=== PATIENT | female | born 1970 | race Caucasian/White ===

== ENCOUNTER 2024-11-07 09:53 | Outpatient (OUT) | payer OTHER, SELFPAY ==
--- OUTSIDE RECORDS SUMMARY | 2023-10-25 07:35 | XMS_ITS ---
Author Organization The [facility] in [place] Address [address] [place] [address] Care Team Providers Care Wastewater Process Engineer Name Role Phone Ernst Shekhar Primary Care Provider ELIEL GAMBOA Unavailable [phone] REASON FOR VISIT BP Check Medications Medication SIG (Take, Route, Frequency, Duration) Notes Start Date End Date Status Coreg 6.25 MG 1 tablet with food O rally Twice a day for 30 days 10/25/2023 Active Vital Signs Height 64 in 10/25/2023 Blood pressure systolic 142 mm Hg 10/25/19 24 Blood pressure diastolic 92 mm Hg 024 Encounters Encounter Location Date Provider Diagnosis [facility] [address] [place] [address] 10/25/2023 ELIEL MOORECristy Hypertension I10 Assessments Encounter [...] * Shanda ABAD MDOB:1970 (52 yo F)Acc No.[id number]:10/25/2023 Patient: William Shanda [place] :1970 A ge:52 Y S ex:Female Address:[address] [place] [address] * Refills Stop Lisinopril Tablet, 10 MG, [...] Date: Generated for Kelly rivera/Dung/Jyoti on: 0 11/07/2024 09:55 AM EDT
--- OUTSIDE RECORDS SUMMARY | 2024-04-17 16:14 | XMS_ITS ---
Author Organization The [facility] in [place] Address [address] [place] [address] Care Team Providers Care Performance Instructor Name Role Phone Shekhar Dukes Primary Care Provider REASON FOR VISIT Mamm results- Encounters Encounter Location Date Provider Diagnosis [facility] [address] [facility] [address] 04/17/2024 Shekhar Dukes Plan Of Treatment No Information Progress Notes * Shanda ABAD MDOB:1970 (53 yo F)Acc No.[id number]:04/17/2024 Patient: William Shanda [place] :1970 A ge:53 Y S ex:Female Address:[address] [place] [address] * true * Date: Generated for Kelly rivera/Dung/eTransmitting on: 0 11/07/2024 09:57 AM EDT
--- OUTSIDE RECORDS SUMMARY | 2024-10-25 23:59 | XMS_ITS | Continuity of Care Document ---
Author Organization [facility] Address [address] [place] [address] [place] [address] Care Team Providers Care Oven Builder Name Role Phone Shekhar Dukeslas Primary Care Physician [phone] Encounter FT_AMBFIN [id number] Date(s): 10/25/24 - 10/25/24 [facility] [address], [place], [place] [address] Encounter Diagnosis Screening for malignant neoplasm of colon(Discharge Diagnosis) - 10/25/24 Discharge Disposition: Home (Routine DC) Attending Physician: Ion BONE MD Encounter Type: Clinic Allergies, Adverse Reactions, Alerts No Known Allergies Functional Status 10/25/24 Symptomatic After Exposure to Contagion No Symptomatic After Travel High-Risk Area No Droplet, Contact Isolation Verification N/A Airborne,Contact Isolation Verification N/A Medications amLODIPine 5 mg Tab 5 mg = 1 tab(s), Oral, Daily, Refills(s) 0 Start Date: 10/25/24 Status: Ordered Repeat number: 1 Multi Vitamins oral tablet 1 tab(s), Oral, Daily, Refill(s) 0 Start Date: 10/25/24 Status: Ordered Repeat number: 1 ProFe 180 mg oral capsule 180 mg = 1 cap(s), Oral, Daily, Refills(s) 0 Start Date: 10/25/24 Status: Ordered Repeat number: 1 Problem List Condition Confirmation Course Effective Dates Status Health St atus Informant Fibrocystic breast disease Confirmed Active Hypertension Confirmed Active Screening for malignant neoplasm of colon Confirmed Active Tobacco use Confirmed Active patient Procedures Procedure Date Related Diagnosis Body Site Status Excision of cervical lymph node Completed Ultrasonography guided biops y of left breast Completed Vital Signs Most recent to oldest [Reference Range]: 1 Peripheral Pulse Rate [60-100 bpm] 76 bp m (10/25/24 1:34 PM) Respiratory Rate [14-20 br/min] 16 br/mi n (10/25/24 1:34 PM) Blood Pressure [89-139/59-89 mmHg] 138/8 0mmHg (10/25/24 1:34 PM) Blood Pressure Location Right arm (10/25/24 1:34 PM) Social History Social History Type Response Smoking Status 10 or more cigarette s (1/2 pack or more)/day in last 30 days;Never; Type: Cigarettes; Smoking Cessation Yes; Started at age: 18.0; entered on: 10/25/24 Sex Female Sex Representation Female (finding) Patient Care team information Care Team Personnel Name: Andrea Dukes MD Position: FT Physician Member Role: Primary Care Physician Address: [address] [place] [address] Telecom: Care Team Related Persons Name: ANAT BENZ Insurance Providers Guarantor name: RE[employer]UG[employer] Health Plan Information #: 1 Payer: [employer] Member Number: [id number] Policy Number: NA Group Number: [id number] Health Plan Information #: 2 Payer: [employer] Member Number: [id number] Policy Number: NA Group Number: [id number]
--- OUTSIDE RECORDS SUMMARY | 2024-11-07 09:55 | XMS_ITS | Encounter Summary ---
Author Organization [facility] Address [address] [place] [address] Care Team Providers Care Manufacturing Specialist Name Role Phone Andrea Dukes MD Primary Care Provider [phone] Annel Mccoy MD Unavailable [phone] Encounter Details Date Type Department Care Team (Late st Contact Info) Description 10/24/[address] [facility] [address] [place] [address] Maritza Ott LPN Social History Tobacco Use Types Packs/Day Years Used Date Smoking Tobacco: Every Day Cigarettes Smokeless Tobacco: Never Alcohol Use Standard Drinks/Week Comments Yes 0 (1 standard drink = 0.6 oz pur e alcohol) AUDIT-C Answer Date Recorded Q1: How often do you have a drink containing alc ohol? Monthly or less 07/08/2023 Q2: How many drinks containi ng alcohol do you have on a typical day when you are drinking? 1 or 2 07/08/2023 Q3: How often do you have si x or more drinks on one occasion? Never 07/08/2023 PHQ-2 Answer Date Recorded Patient Health Questionnaire-2 Score 0 07/08/2023 Comments No Sex and Gender Information Value Date Recorded Sex Assigned at Not on file Legal Sex Female 6:55 PM EDT Gender Identity Not on file Sexual Orientation Not on file documented as of this encounter Miscellaneous Notes * Telephone Encounter - Maritza Ott LPN - 10/24/2024 10:03 AM EDT Pt called with symptoms of UTI - per edu rx for macrobid faxed to pharmacy. documented in this encounter Plan of Treatment Not on file documented as of this encounter Visit Diagnoses Diagnosis Urinary tract infection without hematuria, site unspecified documented in this encounter Care Teams Manufacturing Specialist Relationship Specialty Start Date End Date Andrea Dukes MD PCP - General Family Medicine 07/07/23 Annel Mccoy MD [address] [facility] [address] [place] [address] Obstetrics and Gynecology 07/07/23 documented as of this encounter
--- OUTSIDE RECORDS SUMMARY | 2024-11-07 09:56 | XMS_ITS | Patient Health Record ---
Author Organization [facility] in [place] Address [address] [place] [address] Care Team Providers Care Hide Salter Name Role Phone Ernst Shekhar Primary Care Provider [phone] Allergies No Known Allergies Reason For Referral Reason colonoscopy Diagnosis 1 Well adult (Z00.00) Referral Organization [facility] Referring Provider First Name Shekhar Referring Provider Last Name Ernst Referring Provider Speciality Family Med esteban Referred Provider Ion Arredondo Referred Provider Specialty General Surg mario Referral Priority Routine Medications Medication SIG (Take, Route, Frequency, Duration) [...] in quitting? Not ready to jigna t Alcohol Screen (Audit-C) Question Answer Notes Did you have a drink contain ing alcohol in the past year? Yes How often did you have 6 or more drinks on one occasion in the past year? Never (0 point) How many drinks did you have on a typical day when you were drinking in the past year? 1 or 2 drinks (0 point) How often did you have a dri nk containing alcohol in the past year? Weekly (3 points) Points 3 Interpretation Positive AUDIT-C (Standard) Question Answer Notes Did you have a drink containing alcohol in the p ast year? No Points 0 Interpretation Negative Problems Problem Type SNOMED Code ICD Code Onset Dates Problem Status W/U Status Risk Notes Problem Hypertension (I10) Active confirmed Problem Well adult (978314641) Well adult (Z00.00) Active confirmed Vital Signs Blood pressure diastolic 90 mm Hg 03/24/2024 Height 64 in 03/24/2024 Blood pressure systolic 144 mm Hg 03/24/2024 Weight 122.8 lbs 03/24/2024 BMI 21.08 kg/m2 03/24/2024 Procedures Procedure Date Ordered Date Performed Result Body Sit e CARDIO Stress Test - Cardiolite 03/24/2024 N/A Encounters Encounter Location Date Provider Diagnosis [facility] [address] [place] [address] 03/24/2024 Shekhar Hoy Chest pain R07.9 and Well adult Z00.00 [facility] [address] [place] [address] 04/17/2024 Shekhar Hoy Assessments Encounter Date Diagnosis (ICD Code) Assessment Notes Treatment Notes Treatment Clinical Notes Section Notes 03/24/2024 Chest pain (ICD-10 - R07.9) chest pressure with activity - getting worse over time - but stil recoevres with rest 03/24/2024 Well adult (ICD-10 - Z00.00) Plan Of Treatment Pending Test Test Name Order Date CMP (COMPLETE METABOLIC PANEL) 4 CMP (COMPLETE METABOLIC PANEL) 4 HEMOGLOBIN A1C (GLYCO) 03/24/2024 HEMOGLOBIN A1C (GLYCO) 09/14/2023 IRON, TOTAL 03/24/2024 LIPID PANEL (CHOL/TRIG/HDL/LDL) 03/24/20 LIPID PANEL (CHOL/TRIG/HDL/LDL) 09/14/19 CBC WITH DIFF 09/14/2023 CBC WITH DIFF 03/24/2024 MAMM Mammograms CAD 09/14/2023 CARDIO Stress Test - Cardiolite 03/24/20 24 THYROID PANEL (T4/TSH/FREE T3) 4 THYROID PANEL (T4/TSH/FREE T3) 4 MM screening mammo BI 03/24/2024 Insurance Providers Payer Name Payer Address Payer Phone Subscriber Number Group Number Insured Name Patient Relationship to Insured Coverage Start Date Coverage End Date [employer] ACC[employer] PPO PLUS LOCAL PLAN [address] [place] [phone] [id number] Shanda Abad Self - patient is the insured Medical (General) History Surgical History Surgery Date(Month/Year) denies Hospitalization History Reason Date(Month/Year) denies
== END 2024-11-07 09:54 | disposition home or self-care (01) ==
LOC: PST 09:53
PROVIDERS: PCP Family Medicine; Visit Provider Surgery
DX: Z01.818 Encounter for other preprocedural examination (principal); Z12.11 Encounter for screening for malignant neoplasm of colon

== ENCOUNTER 2024-11-15 07:29 | Day surgery (SDC) | payer OTHER, SELFPAY ==
--- OUTSIDE RECORDS SUMMARY | 2023-10-25 07:35 | XMS_ITS ---
Author Organization The [facility] in [place] Address [address] [place] [address] Care Team Providers Care Road Sign Installer Name Role Phone Ernst Shekhar Primary Care Provider [phone] ELIEL GAMBOA Unavailable [phone] REASON FOR VISIT BP Check Medications Medication SIG (Take, Route, Frequency, Duration) Notes Start Date End Date Status Coreg 6.25 MG 1 tablet with food O rally Twice a day for 30 days 10/25/2023 Active Vital Signs Height 64 in 10/25/2023 Blood pressure systolic 142 mm Hg 10/25/19 24 Blood pressure diastolic 92 mm Hg 024 Encounters Encounter Location Date Provider Diagnosis [facility] [address] [place] [address] 10/25/2023 ELIEL MOORECristy Hypertension I10 Assessments Encounter Date Diagnosis (ICD Code) Assessment Notes Treatment Notes Treatment Clinical Notes Section Notes 10/25/2023 Hypertension (ICD-10 - I10) Plan Of Treatment Medication Medication Name Sig Start Date Stop Date Notes Coreg 6.25 MG 1 tablet with food O rally Twice a day for 30 days 10/25/2023 Lisinopril 10 MG 1 tablet Orally Once a day 09/14/2023 Progress Notes * Shanda ABAD MDOB:1970 (52 yo F)Acc No.[id number]:10/25/2023 Patient: William Shanda [place] :1970 A ge:52 Y S ex:Female Address:[address] [place] [address] * Refills Stop Lisinopril Tablet, 10 MG, Orally, 1 tablet, Once a day Start Coreg Tablet, 6.25 MG, Orally, 60, 1 tablet with food, Twice a day, 30 days Subjective: * Chief Complaints: * B P Check * Medical History: * Surgical History: * Hospitalization/Major Diagno stic Procedure: * Medications: Objective: * Vitals: W t: Not Taken - No Medical Need, Ht: 64 in, BP:142/92mm Hg, Ht-cm: 162.56 cm. * Physical Examination: Assessment: * Assessment: 1. H ypertension - I10 Plan: * Treatment: 2. O thers Start Coreg Tablet, 6.25 MG, 1 tablet with food, Orally, Twice a day, 30 days, 60. * Procedure Codes: * true * Date: Generated for Kelly rivera/Dung/Jyoti on: 0 11/15/2024 07:31 AM EDT
--- OUTSIDE RECORDS SUMMARY | 2024-03-24 07:30 | XMS_ITS ---
Author Organization The [facility] in [place] Address [address] [place] [address] Care Team Providers Care Atmospheric Scientist Name Role Phone Ernst Shekhar Primary Care Provider [phone] Allergies No Known Allergies Reason For Referral Reason colonoscopy Diagnosis 1 Well adult (Z00.00) Referral Organization [facility] Referring Provider First Name Shekhar Referring Provider Last Name Ernst Referring Provider Speciality Family Med esteban Referred Provider Ion Arredondo Referred Provider Specialty General Surg mario Referral Priority Routine REASON FOR VISIT Yearly Wellness Medications Medication SIG (Take, Route, Frequency, Duration) Notes Start Date End Date Status amLODIPine Besylate 5 MG 1 tablet Orally Once a day for 30 days 03/24/2024 Active Social History Tobacco Use: Social History Observation Description Date Details (start date - stop date) Current Smoker 06/07/1988 - NA Tobacco Use/Smoking Question Answer Notes Patient is a current smoker When did you start smoking? 06/07/1988 How often do you smoke cigarettes? every day How many cigarettes a day do you smoke? 5 or les s How soon after you wake up do you smoke your fir st cigarette? after 60 minutes Are you interested in quitting? Not ready to jigna t AUDIT-C (Standard) Question Answer Notes Did you have a drink containing alcohol in the p ast year? No Points 0 Interpretation Negative Vital Signs Weight 122.8 lbs 03/24/2024 Height 64 in 03/24/2024 Blood pressure systolic 144 mm Hg 03/24/20 24 Blood pressure diastolic 90 mm Hg 024 BMI 21.08 kg/m2 03/24/2024 Procedures Procedure Date Ordered Date Performed Result Body Sit e CARDIO Stress Test - Cardiolite 03/24/2024 N/A Encounters Encounter Location Date Provider Diagnosis [facility] [address] [facility] [address] 03/24/2024 Shekhar Ernst Chest pain R07.9 and Well adult Z00.00 Assessments Encounter Date Diagnosis (ICD Code) Assessment Notes Treatment Notes Treatment Clinical Notes Section Notes 03/24/2024 Chest pain (ICD-10 - R07.9) chest pressure with activity - getting worse over time - but stil recoevres with rest 03/24/2024 Well adult (ICD-10 - Z00.00) Plan Of Treatment Medication Medication Name Sig Start Date Stop Date Notes amLODIPine Besylate 5 MG 1 tablet Orally Once a day for 30 days 03/24/2024 Coreg 6.25 MG 1/2 tablet with food Orally Twice a day 10/25/2023 Treatment Notes Assessment Notes Chest pain chest pressure with activity - getting worse over time - but stil recoevres with rest Pending Test Test Name Order Date CMP (COMPLETE METABOLIC PANEL) 4 HEMOGLOBIN A1C (GLYCO) 03/24/2024 IRON, TOTAL 03/24/2024 LIPID PANEL (CHOL/TRIG/HDL/LDL) 03/24/20 24 CBC WITH DIFF 03/24/2024 CARDIO Stress Test - Cardiolite 03/24/20 24 THYROID PANEL (T4/TSH/FREE T3) 4 MM screening mammo BI 03/24/2024 Referrals Referral Date Details 03/24/2024 03/24/2024, colonIon sahni Progress Notes * Shanda ABAD MDOB:1970 (53 yo F)Acc No.[id number]:03/24/2024 Progress Note Patient: Shanda ROBB Provider: Joyce Dukes ([facility])MD :1970 A ge:53 Y S ex:Female Date:03/24/2024 Address:[address] [place] [address] [address] [place], [id number] Check In:11:34 AM ESTCheck O ut:12:12 PM EST Subjective: * Chief Complaints: * 1 . Yearly Wellness. * HPI: G eneral: disucsed BP = at home -0 ut dose in half foggy brain. * ROS: E ENT: hearing changes d enies, denies. v isual changes d enies, denies. n on-healing mouth sores d enies, denies. s wollen glands or neck lumps?denies, denies. h oarseness d enies, denies. s ore throat d enies, denies. d ifficulty swallowing d enies, denies. n ose bleeds d enies, denies. n malena congestion d enies, denies. e ar ache d enies, denies. e ar discharge d enies, denies.?ringing in ears d enies, denies. l ight sensitivity d enies, denies. e ye pain denies, denies. b lurring d enies, denies. e ye irritation d enies, denies. d ouble vision d enies, denies. v ision loss d enies, denies. G eneral/Constitutional: Sweats: D enies, Denies. F atigue d enies, denies.?Sleep problems d enies, denies. A norexia d enies, denies. M alaise d enies, denies. W eight loss d enies, denies. F atigue or Weakness d enies, denies. F ever or Chills d enies, denies. C ardiovascular: Shortness of Breath w/lying flat d enies, denies. L ightheadedness/dizziness d enies, denies. C hest tightness/ heavy pressure d enies, denies.?Swelling of legs, ankles, or feet d enies, denies. W aking up with shortness of breath denies, denies. C hest pain d enies, denies. P alpitations d enies, denies.?Weight gain d enies, denies. R espiratory: Chronic or frequent cough d enies, denies. C oughing up blood d enies, denies. D ifficulty breathing d enies, denies. P roductive cough?denies, denies. S noring d enies, denies. S hortness of breath that awakens from sleep (PND) d enies, denies. C hest pain d enies, denies. S putum production d enies, denies. W heezing d enies, denies. M usculoskeletal: Joint pain d enies, denies. J oint Fluid d enies, denies. B ack pain d enies, denies. K nee pain d enies, denies. N tatiana pain d enies, denies. J oint Stiffness d enies, denies. M uscle cramps d enies, denies. Weakness of muscles d enies, denies. A rthritis d enies, denies. M uscle aches?denies, denies. P ain in shoulder(s) d enies, denies. S wollen joints d enies, denies. * Active Problem List I10 Hypertension Modified On:09/14/2023W/U Status:confirmed Z00.00 Well adult Modified On:09/14/2023W/U Status:confirmed * Medical History: M edical History Verified. * Surgical History: d enies . * Hospitalization/Major Diagno stic Procedure: d enies . * Family History: F ather: alive, renal cell cancer, diagnosed with Diabetes mellitus without mention of complication, type II or unspecified type, not stated as uncontrolled, Chronic kidney disease, unspecified. Mother: , diagnosed with Unspecified heart disease. 1 brother(s) . . * Social History: T obacco Use: T obacco Use/Smoking P atient is a c urrent smoker W hen did you start smoking? 0 06/07/1988 H ow often do you smoke cigarettes? e very day H ow many cigarettes a day do you smoke? 5 or less H ow soon after you wake up do you smoke your first cigarette? a fter 60 minutes A re you interested in quitting? N ot ready to quit D rug/Alcohol: A BYRON-C (Standard) D id you have a drink containing alcohol in the past year? N o P oints 0 I nterpretation N egative * Medications: T aking Coreg(Carvedilol) 6.25 MG Tablet 1/2 tablet with food Orally Twice a day , Medication List reviewed and reconciled with the patient * Allergies: N .K.D.A. Objective: * Vitals: W t:122.8lbs, Ht: 64 in, BP:144/90mm Hg, BMI:21.08Index, Ht-cm: 162.56 cm, Wt-k.7 kg. * Examination: P hysical Exam: GENERAL: w ell developed, well nourished, in no acute distress , well developed, well nourished, in no acute distress. HEAD: n ormocephalic/atraumatic , normocephalic/atraumatic.? EYES: p upils equal, round and reactive to light, conjunctivae and sclerae normal , pupils equal, round and reactive to light, conjunctivae and sclerae normal.? EARS: n o deformity or lesion of external ear, canals and TM appear normal bilaterally, TM's intact, not inflamed with normal light reflex, hearing grossly normal to conversational speech , no deformity or lesion of external ear, canals and TM appear normal bilaterally, TM's intact, not inflamed with normal light reflex, hearing grossly normal to conversational speech. NOSE: n o deformity, discharge, inflammation, or lesions , no deformity, discharge, inflammation, or lesions. MOUTH: m ucous membranes moist, normal oropharynx and posterior pharynx without lesions or exudates, tongue normal, dentition normal , mucous membranes moist, normal oropharynx and posterior pharynx without lesions or exudates, tongue normal, dentition normal. NECK: n tatiana supple, no masses or palpable cervical nodes, trachea midline, thyroid without nodules, masses, tenderness, or enlargement , neck supple, no masses or palpable cervical nodes, trachea midline, thyroid without nodules, masses, tenderness, or enlargement. CHEST: n o chest wall deformity, no chest wall tenderness , no chest wall deformity, no chest wall tenderness. LUNGS: n ormal respiratory effort and clear to auscultation, no wheezes, rales, or rhonchi, good air exchange , normal respiratory effort and clear to auscultation, no wheezes, rales, or rhonchi, good air exchange. CARDIO: r egular rate and rhythm, normal S1 and S2, nor murmur, rub, or gallop , regular rate and rhythm, normal S1 and S2, nor murmur, rub, or gallop. PULSES: n ormal capillary refill , normal capillary refill.? ABDOMEN: s oft, non-distended, non-tender, no masses , soft, non-distended, non-tender, no masses. MUSCULOSKELETAL: n o deformity or scoliosis noted, normal range of motion, joints normal, no erythema, edema, effusion, or ecchymosis , no deformity or scoliosis noted, normal range of motion, joints normal, no erythema, edema, effusion, or ecchymosis. EXTREMITY: n o clubbing, cyanosis, edema, or deformity with normal ROM in both upper and lower bilateral extremities , no clubbing, cyanosis, edema, or deformity with normal ROM in both upper and lower bilateral extremities. NEUROLOGIC: g rossly normal , grossly normal. SKIN: n o rashes, ulcerations, or suspicious lesions , no rashes, ulcerations, or suspicious lesions. LYMPH NODES: n o cervical adenopathy, nodes normal , no cervical adenopathy, nodes normal. MENTAL STATUS: a lert and oriented x3, normal mood and affect , alert and oriented x3, normal mood and affect. Assessment: * Assessment: 1. C hest pain - R07.9 (Primary) 2 . [facility] adult - Z00.00 Plan: * Treatment: 2. W [facility] adult Stop Coreg Tablet, 6.25 MG, 1/2 tablet with food, Orally, Twice a day; S tart amLODIPine Besylate Tablet, 5 MG, 1 tablet, Orally, Once a day, 30 days, 30, Refills 11. L AB: CMP (COMPLETE METABOLIC PANEL) L AB: HEMOGLOBIN A1C (GLYCO) L AB: IRON, TOTAL L AB: LIPID PANEL (CHOL/TRIG/HDL/LDL) L AB: CBC WITH DIFF L AB: THYROID PANEL (T4/TSH/FREE T3) I maging: MM screening mammo BI Referral To:Ion Arredondo General Surgery Reason:colonoscopy * Preventive Medicine: Screenings/Counseling: T OBACCO ACTION PLAN Patient counselled on the dangers of tobacco use and urged to quit. 1 . * * Sign off status: Completed Visit Status: C HK (Check Out) true * Provider: Joyce Dukes ([facility])MD Date: Generated for Printi ng/Faxing/eTransmitting on: 0 11/15/2024 07:32 AM EDT History and Physical Notes * HPI (History of Present Illness) Category Sub-Category Detail Notes Category Not es General disucsed BP = at home -0 ut dose in half foggy brain Examination Category Sub-Category Detail Notes Category Not es Physical Exam GENERAL: well developed, well nourished, in no acute distress , well developed, well nourished, in no acute distress HEAD: normocephalic/atraum atic , normocephalic/atraumatic EYES: pupils equal, round and reactive to light, conjunctivae and sclerae normal , pupils equal, round and reactive to light, conjunctivae and sclerae normal EARS: no deformity or lesi on of external ear, canals and TM appear normal bilaterally, TM's intact, not inflamed with normal light reflex, hearing grossly normal to conversational speech , no deformity or lesion of external ear, canals and TM appear normal bilaterally, TM's intact, not inflamed with normal light reflex, hearing grossly normal to conversational speech NOSE: no deformity, discha rge, inflammation, or lesions , no deformity, discharge, inflammation, or lesions MOUTH: mucous membranes kaity st, normal oropharynx and posterior pharynx without lesions or exudates, tongue normal, dentition normal , mucous membranes moist, normal oropharynx and posterior pharynx without lesions or exudates, tongue normal, dentition normal NECK: neck supple, no mass es or palpable cervical nodes, trachea midline, thyroid without nodules, masses, tenderness, or enlargement , neck supple, no masses or palpable cervical nodes, trachea midline, thyroid without nodules, masses, tenderness, or enlargement CHEST: no chest wall deform ity, no chest wall tenderness , no chest wall deformity, no chest wall tenderness LUNGS: normal respiratory e ffort and clear to auscultation, no wheezes, rales, or rhonchi, good air exchange , normal respiratory effort and clear to auscultation, no wheezes, rales, or rhonchi, good air exchange CARDIO: regular rate and rhy thm, normal S1 and S2, nor murmur, rub, or gallop , regular rate and rhythm, normal S1 and S2, nor murmur, rub, or gallop PULSES: normal capillary ref ill , normal capillary refill ABDOMEN: soft, non-distended, non-tender, no masses , soft, non-distended, non- tender, no masses RECTAL: MUSCULOSKELETAL: no deformity or scol iosis noted, normal range of motion, joints normal, no erythema, edema, effusion, or ecchymosis , no deformity or scoliosis noted, normal range of motion, joints normal, no erythema, edema, effusion, or ecchymosis EXTREMITY: no clubbing, cyanosi s, edema, or deformity with normal ROM in both upper and lower bilateral extremities , no clubbing, cyanosis, edema, or deformity with normal ROM in both upper and lower bilateral extremities NEUROLOGIC: grossly normal , stephie ssly normal SKIN: no rashes, ulceratio ns, or suspicious lesions , no rashes, ulcerations, or suspicious lesions LYMPH NODES: no cervical adenopat hy, nodes normal , no cervical adenopathy, nodes normal MENTAL STATUS: alert and oriented x 3, normal mood and affect , alert and oriented x3, normal mood and affect Consultation Request Notes Referral Date Referring Provider Referred Provider Not es 03/24/2024 Shekhar Dukes Michael colonoscopy
--- OUTSIDE RECORDS SUMMARY | 2024-04-17 16:14 | XMS_ITS ---
Author Organization The [facility] in [place] Address [address] [place] [address] Care Team Providers Care Oracle Developer Name Role Phone Shekhar Dukes Primary Care Provider [phone] REASON FOR VISIT Mamm results- Encounters Encounter Location Date Provider Diagnosis [facility] [address] [place] [address] 04/17/2024 Shekhar Dukes Plan Of Treatment No Information Progress Notes * Shanda ABAD MDOB:1970 (53 yo F)Acc No.[id number]:04/17/2024 Patient: William Shanda [place] :1970 A ge:53 Y S ex:Female Address:[address] [place] [address] * true * Date: Generated for Kelly rivera/Dung/eTransmitting on: 0 11/15/2024 07:32 AM EDT
--- NOTE | 2024-11-15 | OP_ITS ---
OPERATION DATE: 11/15/2024 PREOPERATIVE DIAGNOSIS: Colorectal screening. POSTOPERATIVE DIAGNOSIS: 5 mm rectal polyp, sigmoid diverticulosis. PROCEDURE: Colonoscopy to cecum with cold snare polypectomy x1. SURGEON: Ion Arredondo M.D. ANESTHESIA: Monitored anesthesia care. ESTIMATED BLOOD LOSS: Less than 1 mL. INDICATIONS AND CONSENT: Patient is a 53-year-old female, presents for colorectal screening. Indications, risks, benefits, alternatives of proceeding with colonoscopy were explained extensively to the patient, including the risks of bleeding, colon perforation or anesthetic complications. All of her questions were answered. Informed consent was obtained. PROCEDURE: Patient brought to the operating room, placed in the left lateral decubitus position. Monitored anesthesia care was provided. Rectal exam was performed which showed no masses or blood. The scope was inserted into the anal canal. Under direct visualization was advanced. With the aid of abdominal compression, it was advanced to the cecum, where cecal markings were clearly identified. There was noted to be a good prep. Upon withdrawal of the scope, mucosal surfaces were carefully examined. There were no mass lesions or inflammatory changes. Within the sigmoid colon, there was moderate sigmoid diverticulosis, without inflammatory changes or scarring. Within the upper rectum, there was noted to be a 5 mm sessile polyp that was removed with cold snare with good hemostasis. The scope was retroflexed in the anal canal. There was no significant hemorrhoidal disease. Scope was then withdrawn. Patient tolerated procedure well, was sent to recovery room in good condition. Follow up screening colonoscopy should be in five years, but may change based on the pathology of the polyp. CC: Andrea Dukes M.D. . [place]
--- OUTSIDE RECORDS SUMMARY | 2024-11-15 07:32 | XMS_ITS | Patient Health Record ---
Author Organization [facility] [place] Address [address] [place] [address] Care Team Providers Care Fax Machine Operator Name Role Phone Ernst Shekhar Primary Care Provider Allergies No Known Allergies Reason For Referral Reason colonoscopy Diagnosis 1 Well adult (Z00.00) Referral Organization [facility] Referring Provider First Name Shekhar Referring [...] Hypertension (I10) Active confirmed Problem Well adult ([id number]) Well adult (Z00.00) Active confirmed Vital Signs Blood pressure diastolic 90 mm Hg 03/24/2024 Height 64 in 03/24/2024 Blood pressure systolic 144 mm Hg 03/24/2024 Weight 122.8 lbs 03/24/2024 BMI 21.08 kg/m2 03/24/2024 Procedures Procedure Date Ordered Date Performed Result Body Sit e CARDIO Stress Test - Cardiolite 03/24/2024 N/A Encounters Encounter Location Date Provider Diagnosis [facility] [address] [place] [address] 03/24/2024 Shekhar Hoy Chest pain R07.9 and Well adult Z00.00 [facility] [address] [place] [address] 04/17/2024 Shekhar Hoy Assessments Encounter Date Diagnosis [...] ACCESS PPO PLUS LOCAL PLAN [address] [place] [phone] [id number] Shanda Abad Self - patient is the insured Medical (General) History Surgical History Surgery Date(Month/Year) denies Hospitalization History Reason Date(Month/Year) denies
[2024-11-15 07:35] VITALS: BP 139/104; PULSE 89; TEMP 36.2; O2SAT 95; BMI 21.3
[2024-11-15] MEDS: 0.9 % SODIUM CHLORIDE 500 ML 50 ML IV (07:54)
[2024-11-15 08:06] LABS: HCG Qualitative NEGATIVE (NEGATIVE); Internal Control Within Normal Limits
[2024-11-15 09:00] VITALS: BP 102/66; PULSE 71; TEMP 36.3; O2SAT 98
[2024-11-15 09:15] VITALS: BP 126/89; PULSE 64; TEMP 36.3; O2SAT 96
[2024-11-15 09:30] VITALS: BP 146/87; PULSE 68; O2SAT 97
== END 2024-11-15 09:30 | disposition home or self-care (01) ==
LOC: SURGOUT 07:30
PROVIDERS: PCP Family Medicine; Visit Provider Surgery
PROC: (CPT 00812; principal; 2024-11-15 08:20)
DX: Z12.11 Encounter for screening for malignant neoplasm of colon (principal); K57.30 Diverticulosis of large intestine without perforation or abscess without bleeding; K62.1 Rectal polyp; F17.210 Nicotine dependence, cigarettes, uncomplicated; I10 Essential (primary) hypertension
CPT/HCPCS: 00812; 45385; 36415; 84703; 88305; J2704